=== PATIENT | male | born 1990 | race Caucasian/White ===

== ENCOUNTER 2017-07-15 09:13 | Emergency (ER) | payer OTHER ==
[~2017-07-15] VITALS: Ht 175.2 cm; Wt 64.9 kg
--- NOTE | ~2017-07-15 | EKG ---
[place], [place] ELECTROCARDIOGRAM REPORT NAME: SHANNEN DIAZ UNIT #: [id number] ROOM: DOCTOR: EDIL MADDOX,TAYE BIRTHDATE: [birth year] DOS: 07/15/2017 TIME: 9:32 a.m. IMPRESSION: 1. Sinus rhythm. 2. Nondiagnostic ST elevation anteriorly; consider early repolarization. TAYE SOLO MD CM:EKGRPT:ELECTROCARDIOGRAM REPORT 1512 1713 TAYE SOLO MD
[~2017-07-15 09:13] MED LIST: FLEXERIL10 MG PO; KEFLEX500 MG PO; MOTRIN800 MG PO; MYCELEX TROCHE10 MG MM; NAPROSYN500 MG PO; NKHM; TRAMADOL HCL50 MG PO
[2017-07-15] MEDS ORDERED: NAPROSYN500 MG PO (09:26)
[2017-07-15] MEDS ORDERED: 'PARAFON FORTE500 M1 PO (09:26)
== END 2017-07-15 11:48 | disposition home or self-care (01) ==
LOC: ED 09:13
DX: R07.89 Other chest pain (principal); R03.0 Elevated blood-pressure reading, without diagnosis of hypertension

== ENCOUNTER 2017-08-08 19:56 | Emergency (ER) | payer OTHER ==
[~2017-08-08] VITALS: Ht 175.2 cm; Wt 65.8 kg
[~2017-08-08 19:56] MED LIST changes: +'PARAFON FORTE500 M1 PO
== END 2017-08-08 20:17 | disposition home or self-care (01) ==
LOC: ED 19:56
DX: K64.4 Residual hemorrhoidal skin tags (principal)

== ENCOUNTER 2018-03-05 23:52 | Emergency (ER) | payer OTHER ==
[~2018-03-05] VITALS: Ht 175.2 cm; Wt 69.4 kg
[2018-03-06] MEDS ORDERED: Motrin,Rufen800 MG PO (00:55)
== END 2018-03-06 01:35 | disposition home or self-care (01) ==
LOC: ED 23:52
DX: S93.691A Other sprain of right foot, initial encounter (principal); X50.1XXA Overexertion from prolonged static or awkward postures, initial encounter; Y93.51 Activity, roller skating (inline) and skateboarding; Y92.89 Other specified places as the place of occurrence of the external cause; Y99.9 Unspecified external cause status

== ENCOUNTER 2018-09-04 10:09 | Emergency (ER) | payer OTHER ==
[~2018-09-04] VITALS: Ht 175.2 cm; Wt 69.4 kg
[~2018-09-04 10:09] MED LIST changes: +Motrin,Rufen800 MG PO
[2018-09-04 11:14] LABS: HEMATOCRIT 45.4 % (42.0-52.0); HEMOGLOBIN 15.7 g/dl (14.0-18.0); MEAN CELL VOLUME 92.5 fl (80.0-94.0); MEAN CORPUSCULAR HGB CONC 34.6 g/dl (33.0-37.0); MEAN PLATELET VOLUME 9.2 fl (9.6-12.3); PLATELET COUNT AUTOMATED 292 10*3/uL (130-400); RED BLOOD COUNT 4.91 10*6/uL (4.50-5.90); RED CELL DISTRI WIDTH 11.9 % (0-14.5); WHITE BLOOD COUNT 7.6 10*3/uL (4.8-10.8)
[2018-09-04 11:28] LABS: ALBUMIN 4.6 gm/dl (3.1-4.5); ALKALINE PHOSPHATASE 63 U/L (45-117); BUN 10 mg/dl (7-24); CHLORIDE 106 mmol/L (98-107); CREATININE 1.02 mg/dL (0.70-1.30); LIPASE 103 U/L (73-393); POTASSIUM 4.2 mmol/L (3.5-5.1); SGOT/AST 15 IU/L (3-35); SGPT/ALT 13 U/L (12-78); SODIUM 138 mmol/L (136-145); TOTAL PROTEIN 8.3 gm/dL (6.4-8.2)
[2018-09-04 11:31] LABS: BILIRUBIN NEGATIVE (NEGATIVE); BLOOD 1+ (NEGATIVE); CLARITY CLEAR (CLEAR); COLOR YELLOW (YELLOW); GLUCOSE NEGATIVE (NEGATIVE); KETONE NEGATIVE (NEGATIVE); LEUKO ESTERASE NEGATIVE (NEGATIVE); NITRITE NEGATIVE (NEGATIVE); PH 5.5 (5.0-9.0); SPECIFIC GRAVITY >= 1.030 (1.005-1.030); UROBILINOGEN 0.2 E.U./dl (0.2-1.0)
[2018-09-04 11:38] LABS: ATYPICAL LYMPHS 1 % (0-0); TOTAL CELLS COUNTED 100 #CELLS
[2018-09-04 11:39] LABS: PLATELET SUFFICIENCY NORMAL (NORMAL)
[2018-09-04 11:50] LABS: BACTERIA TRACE; MUCOUS TRACE
[2018-09-04] MEDS ORDERED: ZOFRAN4 MG PO (12:54)
[2018-09-04] MEDS ORDERED: PREDNISONE20 M1 PO (12:54)
== END 2018-09-04 14:29 | disposition home or self-care (01) ==
LOC: ED 10:09
PROVIDERS: Physician Assistant
DX: K52.9 Noninfective gastroenteritis and colitis, unspecified (principal); R42 Dizziness and giddiness; Z79.899 Other long term (current) drug therapy

== ENCOUNTER → 2019-06-11 | Outpatient (CLI) | payer OTHER ==
[~2019-06-11] MED LIST changes: +PREDNISONE20 M1 PO; +ZOFRAN4 MG PO
== END | disposition home or self-care (01) ==
LOC: LAB 01:00
DX: R19.7 Diarrhea, unspecified (principal)

== ENCOUNTER → 2019-06-12 | Outpatient (CLI) | payer OTHER | END | disposition home or self-care (01) | LOC: LAB 08:40 | DX: R19.7 Diarrhea, unspecified (principal) ==

== ENCOUNTER 2020-01-05 13:46 | Emergency (ER) | payer OTHER ==
[~2020-01-05] VITALS: Ht 172.7 cm; Wt 69.4 kg
[2020-01-05] MEDS ORDERED: CARAFATE1 G1 PO (16:23)
[2020-01-05] MEDS ORDERED: PHENERGAN25 M3 PO (16:23)
== END 2020-01-05 16:29 | disposition home or self-care (01) ==
LOC: ED 13:46
DX: K58.9 Irritable bowel syndrome, unspecified (principal); Z79.899 Other long term (current) drug therapy

== ENCOUNTER 2020-06-06 02:34 | Emergency (ER) | payer OTHER ==
[~2020-06-06] VITALS: Ht 175.2 cm; Wt 68.0 kg
[~2020-06-06 02:34] MED LIST changes: +CARAFATE1 G1 PO; +PHENERGAN25 M3 PO
[2020-06-06] MEDS ORDERED: TESSALON PERLE100 M1 PO (04:51)
== END 2020-06-06 05:10 | disposition home or self-care (01) ==
LOC: ED 02:34
DX: J40 Bronchitis, not specified as acute or chronic (principal); R06.02 Shortness of breath; Z79.899 Other long term (current) drug therapy

== ENCOUNTER 2021-02-24 14:13 | Emergency (ER) | payer SELFPAY ==
[~2021-02-24] VITALS: Ht 175.2 cm; Wt 67.1 kg
[~2021-02-24 14:13] MED LIST changes: +TESSALON PERLE100 M1 PO
[2021-02-24] MEDS ORDERED: DICYCLOMINE HCL10 MG PO (15:13)
== END 2021-02-24 15:23 | disposition home or self-care (01) ==
LOC: ED 14:13
DX: K58.9 Irritable bowel syndrome, unspecified (principal); R11.2 Nausea with vomiting, unspecified; Z79.899 Other long term (current) drug therapy

== ENCOUNTER 2023-01-02 15:04 | Emergency (ER) | payer BC ==
[~2023-01-02] VITALS: Wt 73.9 kg
[~2023-01-02 15:04] MED LIST changes: +DICYCLOMINE HCL10 MG PO
[2023-01-02] MEDS ORDERED: IBU800 MG PO (16:11)
[2023-01-02] MEDS ORDERED: AMOX-CLAV 875-1 EACH PO (16:11)
== END 2023-01-02 16:33 | disposition home or self-care (01) ==
LOC: ED 15:04
DX: K04.7 Periapical abscess without sinus (principal); K08.89 Other specified disorders of teeth and supporting structures; Z98.890 Other specified postprocedural states